=== PATIENT | female | born 1930 | race Caucasian/White ===

== ENCOUNTER 2019-10-05 01:50 | Inpatient (IN) | payer MEDICARE ==
[2019-10-05] VITALS (8 sets, daily range): BP systolic 108–124
[~2019-10-05] VITALS: Ht 160 cm; Wt 113.9 kg
[2019-10-05] MEDS ORDERED: NS 500 ML IV ONE (02:00)
[2019-10-05] MEDS ORDERED: GLIP5TAB26 PO (02:27)
[2019-10-05] MEDS ORDERED: ALLO100T PO (02:27)
[2019-10-05] MEDS ORDERED: LISI5TAB PO (02:28)
[2019-10-05 02:41] LABS: HEMATOCRIT 42.4 % (36-48); HEMOGLOBIN 14.3 g/dL (12.0-16.0); MEAN CORPUSCULAR HEMOGLOBIN 33 pg (27-31); MEAN CORPUSCULAR HGB CONC 34 % (32-36); MEAN CORPUSCULAR VOLUME 96 fL (79.0-98.0); PLATELET COUNT (AUTO) 234 K/uL (130-430); RED BLOOD CELL COUNT(AUTO) 4.41 MIL/uL (4.2-6.2); RED CELL DISTRIBUTION WIDTH 13.7 % (9.0-15.0); WHITE BLOOD COUNT (AUTO) 17.4 K/uL (4.8-10.8)
[2019-10-05 02:56] LABS: ANION GAP 8 (5-15); CALCIUM 8.3 mg/dL (8.4-11.0); CHLORIDE 99 mmol/L (98-107); CREATININE 1.31 mg/dL (0.55-1.30); GLUCOSE 265 mg/dL (70-99); POTASSIUM 4.3 mmol/L (3.5-5.1); SODIUM SERUM 132 mmol/L (136-145); UREA NITROGEN, BLOOD 19 mg/dL (8-21)
[2019-10-05 03:00] LABS: PROTHROMBIN TIME 9.9 SECS (9.5-12.5)
[2019-10-05 03:01] LABS: ATYPICAL LYMPHOCYTES % 1 % (0-0); BAND % (MANUAL) 0 % (0-6); BASOPHILS % (MANUAL) 0 % (0-2); EOSINOPHILS % (MANUAL) 0 % (0-7); LYMPHOCYTES % (MANUAL) 10 % (20-46); MONOCYTES % (MANUAL) 8 % (0-11)
[2019-10-05 03:02] LABS: ALANINE AMINOTRANSFERASE 46 U/L (12-78); ALBUMIN 3.5 g/dL (3.4-4.8); ASPARTATE AMINOTRANSFERASE 154 U/L (10-37); TOTAL BILIRUBIN 0.7 mg/dL (0.0-1.0)
[2019-10-05] MEDS ORDERED: ASPIRIN 81 MG TAB.CHEW PO ONE (03:15)
[2019-10-05] MEDS ORDERED: HEPARIN SODIUM,PORCINE 5000 UNITS/ML VIAL IVP ONE (04:00)
[2019-10-05] MEDS ORDERED: *HEPARIN PER PHARMACY XX ONE (04:00)
[2019-10-05] MEDS ORDERED: LEVOFLOXACIN 500 MG/D5W 100 ML IV ONE (04:15)
[2019-10-05] MEDS ORDERED: HEPARIN 25,000 UNITS/D5W 250ML 250 ML IV ONE ×2 (04:30→04:45)
[2019-10-05 05:28] LABS: BILIRUBIN,URINE NEGATIVE (NEGATIVE); BLOOD, URINE NEGATIVE (NEGATIVE); CLARITY/URINE CLEAR (CLEAR); COLOR,URINE YELLOW (YELLOW); GLUCOSE,URINE TRACE (NEGATIVE); KETONES,URINE NEGATIVE (NEGATIVE); LEUKOCYTE ESTERASE ,URINE NEGATIVE (NEGATIVE); NITRITE, URINE NEGATIVE (NEGATIVE); PH,URINE 5.5 (5.0-8.0); PROTEIN URINE NEGATIVE (NEGATIVE); UROBILINOGEN,URINE 0.2 (0.2-1.0)
[2019-10-05] MEDS ORDERED: NACL 0.9% 2,500 ML IV ONE (05:30)
[2019-10-05] MEDS ORDERED: *HEPARIN PER PHARMACY XX SCH (06:15)
[2019-10-05] MEDS ORDERED: HEPARIN SODIUM,PORCINE 2000 UNITS/0.4 ML BOLUS IVP PRN (06:30)
[2019-10-05] MEDS: ASPIRIN 81 MG TAB.CHEW PO SCH (08:57)
[2019-10-05] MEDS ORDERED: LISINOPRIL 5 MG TABLET PO SCH (09:00)
[2019-10-05] MEDS ORDERED: DEXTROSE 50% JECT 50 ML DISP.SYRIN IVP PRN (09:15)
[2019-10-05] MEDS ORDERED: PANTOPRAZOLE SODIUM 40 MG/VIAL (PROTONIX) IVP ONE (09:45)
[2019-10-05 09:47] LABS: ANION GAP 8 (5-15); CALCIUM 7.7 mg/dL (8.4-11.0); CHLORIDE 99 mmol/L (98-107); CREATININE 1.17 mg/dL (0.55-1.30); GLUCOSE 219 mg/dL (70-99); POTASSIUM 4.3 mmol/L (3.5-5.1); SODIUM SERUM 134 mmol/L (136-145); UREA NITROGEN, BLOOD 20 mg/dL (8-21)
[2019-10-05 10:28] LABS: BASOPHILS # (AUTO) 0.1 K/uL (0.0-0.2); BASOPHILS % (AUTO) 0.7 % (0.0-2.0); EOSINOPHILS % (AUTO) 0.1 % (0.0-4.0); HEMATOCRIT 36.1 % (36-48); HEMOGLOBIN 12.1 g/dL (12.0-16.0); LYMPHOCYTES # (AUTO) 1.4 K/uL (1.0-5.5); LYMPHOCYTES % (AUTO) 10.1 % (20.5-51.5); MEAN CORPUSCULAR HEMOGLOBIN 33 pg (27-31); MEAN CORPUSCULAR HGB CONC 34 % (32-36); MEAN CORPUSCULAR VOLUME 97 fL (79.0-98.0); MONOCYTES # (AUTO) 1.6 K/uL (0.0-1.0); NEUTROPHILS % (AUTO) 78.1 % (40.0-70.0); PLATELET COUNT (AUTO) 197 K/uL (130-430); RED BLOOD CELL COUNT(AUTO) 3.74 MIL/uL (4.2-6.2); RED CELL DISTRIBUTION WIDTH 13.7 % (9.0-15.0); WHITE BLOOD COUNT (AUTO) 14.1 K/uL (4.8-10.8)
[2019-10-05] MEDS: glipiZIDE XL 5 MG TAB ( GLUCOTROL XL) PO SCH ×2 (11:11→21:47)
[2019-10-05] MEDS: ALLOPURINOL 100 MG TABLET (ZYLOPRIM) PO SCH (11:11)
[2019-10-05] MEDS ORDERED: PANTOPRAZOLE SODIUM 40 MG/VIAL (PROTONIX) ONE (11:29)
[2019-10-05] MEDS: INSULIN REGULAR, HUMAN 100 UNITS/ML, 10 ML VIAL (humuLIN R) SUBCUT PRN ×3 (11:43→21:50)
[2019-10-05] MEDS: HEPARIN SODIUM,PORCINE 3000 UNITS/0.6 ML BOLUS IVP PRN ×2 (11:57→21:29)
[2019-10-05] MEDS: ONDANSETRON HCL 4 MG/2 ML VIAL IVP PRN (17:45)
[2019-10-05] MEDS: HEPARIN 25,000 UNITS in 250 ML PREMIX IV PRN (21:34)
[2019-10-06] VITALS (12 sets, daily range): BP systolic 99–129
[2019-10-06 04:07] LABS: BASOPHILS # (AUTO) 0.1 K/uL (0.0-0.2); BASOPHILS % (AUTO) 0.4 % (0.0-2.0); EOSINOPHILS # (AUTO) 0.2 K/uL (0.0-0.4); EOSINOPHILS % (AUTO) 1.4 % (0.0-4.0); HEMATOCRIT 34.3 % (36-48); HEMOGLOBIN 11.4 g/dL (12.0-16.0); LYMPHOCYTES # (AUTO) 2.5 K/uL (1.0-5.5); LYMPHOCYTES % (AUTO) 19.7 % (20.5-51.5); MEAN CORPUSCULAR HEMOGLOBIN 32 pg (27-31); MEAN CORPUSCULAR HGB CONC 33 % (32-36); MEAN CORPUSCULAR VOLUME 97 fL (79.0-98.0); MONOCYTES # (AUTO) 1.4 K/uL (0.0-1.0); MONOCYTES % (AUTO) 10.9 % (1.7-9.3); NEUTROPHILS # (AUTO) 8.6 K/uL (1.8-7.7); NEUTROPHILS % (AUTO) 67.6 % (40.0-70.0); PLATELET COUNT (AUTO) 192 K/uL (130-430); RED BLOOD CELL COUNT(AUTO) 3.53 MIL/uL (4.2-6.2); RED CELL DISTRIBUTION WIDTH 13.6 % (9.0-15.0); WHITE BLOOD COUNT (AUTO) 12.7 K/uL (4.8-10.8)
[2019-10-06] MEDS: HEPARIN SODIUM,PORCINE 3000 UNITS/0.6 ML BOLUS IVP PRN ×2 (04:35→13:50)
[2019-10-06 04:36] LABS: ALANINE AMINOTRANSFERASE 33 U/L (12-78); ALBUMIN 2.8 g/dL (3.4-4.8); ANION GAP 9 (5-15); CALCIUM 7.3 mg/dL (8.4-11.0); CHLORIDE 102 mmol/L (98-107); CREATININE 1.21 mg/dL (0.55-1.30); GLUCOSE 155 mg/dL (70-99); POTASSIUM 4.2 mmol/L (3.5-5.1); SODIUM SERUM 136 mmol/L (136-145); TOTAL BILIRUBIN 0.5 mg/dL (0.0-1.0); UREA NITROGEN, BLOOD 22 mg/dL (8-21)
[2019-10-06] MEDS: HEPARIN 25,000 UNITS in 250 ML PREMIX IV PRN ×2 (04:38→13:55)
[2019-10-06 04:48] LABS: ASPARTATE AMINOTRANSFERASE 53 U/L (10-37)
[2019-10-06 05:02] LABS: CHOLESTEROL 187 mg/dL (<200); HDL CHOLESTEROL 50 mg/dL (>55); LDL CHOLESTEROL 117 mg/dL (<100); TRIGLYCERIDES 121 mg/dL (30-150)
[2019-10-06] MEDS ORDERED: LEVOFLOXACIN 250 MG/D5W 50 ML IV SCH (06:00)
[2019-10-06] MEDS: INSULIN REGULAR, HUMAN 100 UNITS/ML, 10 ML VIAL (humuLIN R) SUBCUT PRN ×4 (06:07→22:15)
[2019-10-06] MEDS: ONDANSETRON HCL 4 MG/2 ML VIAL IVP PRN (08:04)
[2019-10-06] MEDS: glipiZIDE XL 5 MG TAB ( GLUCOTROL XL) PO SCH ×2 (09:21→20:55)
[2019-10-06] MEDS: ASPIRIN 81 MG TAB.CHEW PO SCH (09:21)
[2019-10-06] MEDS: ALLOPURINOL 100 MG TABLET (ZYLOPRIM) PO SCH (09:21)
[2019-10-06] MEDS: PANTOPRAZOLE SODIUM 40 MG/VIAL (PROTONIX) IVP SCH (09:21)
[2019-10-06] MEDS ORDERED: DILTIAZEM HCL 25 MG/5 ML VIAL IVP PRN (13:30)
[2019-10-06] MEDS ORDERED: METOPROLOL TARTRATE 25 MG TABLET PO ONE (13:30)
[2019-10-06] MEDS: DILTIAZEM HCL 60 MG TABLET PO SCH ×2 (14:04→22:23)
[2019-10-06] MEDS ORDERED: DILTIAZEM HCL 125 MG in D5W 100 ML IV SCH (14:45)
[2019-10-06 16:23] LABS: BASOPHILS # (AUTO) 0.1 K/uL (0.0-0.2); BASOPHILS % (AUTO) 0.7 % (0.0-2.0); EOSINOPHILS # (AUTO) 0.1 K/uL (0.0-0.4); HEMATOCRIT 34.8 % (36-48); HEMOGLOBIN 11.6 g/dL (12.0-16.0); LYMPHOCYTES # (AUTO) 2.1 K/uL (1.0-5.5); LYMPHOCYTES % (AUTO) 15.3 % (20.5-51.5); MEAN CORPUSCULAR HEMOGLOBIN 32 pg (27-31); MEAN CORPUSCULAR HGB CONC 33 % (32-36); MEAN CORPUSCULAR VOLUME 97 fL (79.0-98.0); MONOCYTES # (AUTO) 1.5 K/uL (0.0-1.0); MONOCYTES % (AUTO) 11.1 % (1.7-9.3); NEUTROPHILS # (AUTO) 9.7 K/uL (1.8-7.7); NEUTROPHILS % (AUTO) 71.9 % (40.0-70.0); PLATELET COUNT (AUTO) 200 K/uL (130-430); RED BLOOD CELL COUNT(AUTO) 3.57 MIL/uL (4.2-6.2); WHITE BLOOD COUNT (AUTO) 13.5 K/uL (4.8-10.8)
[2019-10-06 16:52] LABS: ANION GAP 9 (5-15); CALCIUM 8.6 mg/dL (8.4-11.0); CHLORIDE 102 mmol/L (98-107); CREATININE 1.17 mg/dL (0.55-1.30); GLUCOSE 188 mg/dL (70-99); POTASSIUM 4.8 mmol/L (3.5-5.1); SODIUM SERUM 134 mmol/L (136-145); UREA NITROGEN, BLOOD 24 mg/dL (8-21)
[2019-10-06] MEDS ORDERED: FUROSEMIDE 20 MG/2 ML VIAL IVP ONE (17:00)
[2019-10-06] MEDS ORDERED: LEVALBUTEROL HCL 0.63 MG/3 ML VIAL.NEB INH ONE (17:15)
[2019-10-06] MEDS ORDERED: *LOVENOX 1MG/KG Q12H/PHARMACY XX ONE (18:30)
[2019-10-06] MEDS ORDERED: ENOXAPARIN SODIUM 120 MG/0.8 ML SYRINGE SUBCUT ONE (19:00)
[2019-10-06] MEDS: LEVOFLOXACIN 500 MG/D5W 100 ML IV SCH (20:52)
[2019-10-06] MEDS ORDERED: METOPROLOL TARTRATE 25 MG TABLET PO SCH (21:00)
[2019-10-06] MEDS: LEVALBUTEROL HCL 0.63 MG/3 ML VIAL.NEB INH PRN (21:26)
[2019-10-07] VITALS (24 sets, daily range): BP systolic 100–132
[2019-10-07] MEDS: DILTIAZEM HCL 60 MG TABLET PO SCH ×3 (06:01→21:45)
[2019-10-07] MEDS: INSULIN REGULAR, HUMAN 100 UNITS/ML, 10 ML VIAL (humuLIN R) SUBCUT PRN ×4 (06:02→23:20)
[2019-10-07] MEDS: LEVALBUTEROL HCL 0.63 MG/3 ML VIAL.NEB INH PRN (08:26)
[2019-10-07] MEDS: glipiZIDE XL 5 MG TAB ( GLUCOTROL XL) PO SCH (09:15)
[2019-10-07] MEDS: PANTOPRAZOLE SODIUM 40 MG/VIAL (PROTONIX) IVP SCH (09:15)
[2019-10-07] MEDS: ATORVASTATIN 20 MG TABLET PO SCH (09:16)
[2019-10-07] MEDS: ASPIRIN 81 MG TAB.CHEW PO SCH (09:16)
[2019-10-07] MEDS: ALLOPURINOL 100 MG TABLET (ZYLOPRIM) PO SCH (09:16)
[2019-10-07] MEDS: ENOXAPARIN SODIUM 100 MG/ML SYRINGE SUBCUT SCH ×2 (09:21→21:43)
[2019-10-07 09:54] LABS: EOSINOPHILS # (AUTO) 0.1 K/uL (0.0-0.4); HEMOGLOBIN 11.9 g/dL (12.0-16.0); WHITE BLOOD COUNT (AUTO) 15.4 K/uL (4.8-10.8)
[2019-10-07 10:02] LABS: BASOPHILS % (AUTO) 0.3 % (0.0-2.0); EOSINOPHILS % (AUTO) 0.6 % (0.0-4.0); HEMATOCRIT 35.8 % (36-48); LYMPHOCYTES # (AUTO) 2.1 K/uL (1.0-5.5); LYMPHOCYTES % (AUTO) 13.9 % (20.5-51.5); MEAN CORPUSCULAR HEMOGLOBIN 33 pg (27-31); MEAN CORPUSCULAR HGB CONC 33 % (32-36); MEAN CORPUSCULAR VOLUME 98 fL (79.0-98.0); MONOCYTES # (AUTO) 1.7 K/uL (0.0-1.0); MONOCYTES % (AUTO) 11.3 % (1.7-9.3); NEUTROPHILS # (AUTO) 11.4 K/uL (1.8-7.7); NEUTROPHILS % (AUTO) 73.9 % (40.0-70.0); PLATELET COUNT (AUTO) 214 K/uL (130-430); RED BLOOD CELL COUNT(AUTO) 3.65 MIL/uL (4.2-6.2); RED CELL DISTRIBUTION WIDTH 13.8 % (9.0-15.0)
[2019-10-07 10:25] LABS: ANION GAP 8 (5-15); CALCIUM 8.7 mg/dL (8.4-11.0); CHLORIDE 99 mmol/L (98-107); GLUCOSE 212 mg/dL (70-99); POTASSIUM 4.8 mmol/L (3.5-5.1); SODIUM SERUM 133 mmol/L (136-145)
[2019-10-07 10:26] LABS: CREATININE 1.68 mg/dL (0.55-1.30); THYROID STIMULATING HORMONE 2.04 uIu/mL (0.36-3.74); UREA NITROGEN, BLOOD 35 mg/dL (8-21)
[2019-10-07] MEDS: SODIUM BICARBONATE 8.4% VIAL 50 MEQ in 0.45% NACL 1,000 ML IV SCH (12:37)
[2019-10-07] MEDS: LEVOFLOXACIN 500 MG/D5W 100 ML IV SCH (17:12)
[2019-10-07] MEDS ORDERED: FUROSEMIDE 20 MG/2 ML VIAL IVP ONE (18:30)
[2019-10-08] VITALS (14 sets, daily range): BP systolic 85–130
[2019-10-08] MEDS: SODIUM BICARBONATE 8.4% VIAL 50 MEQ in 0.45% NACL 1,000 ML IV SCH (04:30)
[2019-10-08] MEDS: DILTIAZEM HCL 60 MG TABLET PO SCH ×3 (06:19→18:03)
[2019-10-08 06:39] LABS: ANION GAP 6 (5-15); CHLORIDE 97 mmol/L (98-107); CREATININE 1.33 mg/dL (0.55-1.30); GLUCOSE 160 mg/dL (70-99); SODIUM SERUM 130 mmol/L (136-145); UREA NITROGEN, BLOOD 31 mg/dL (8-21)
[2019-10-08] MEDS: ENOXAPARIN SODIUM 100 MG/ML SYRINGE SUBCUT SCH ×2 (09:40→21:16)
[2019-10-08] MEDS: PANTOPRAZOLE SODIUM 40 MG/VIAL (PROTONIX) IVP SCH (09:41)
[2019-10-08] MEDS: ASPIRIN 81 MG TAB.CHEW PO SCH (09:41)
[2019-10-08] MEDS: ALLOPURINOL 100 MG TABLET (ZYLOPRIM) PO SCH (09:41)
[2019-10-08] MEDS: ATORVASTATIN 20 MG TABLET PO SCH (09:41)
[2019-10-08] MEDS ORDERED: FUROSEMIDE 20 MG/2 ML VIAL IVP ONE (10:15)
[2019-10-08] MEDS: INSULIN REGULAR, HUMAN 100 UNITS/ML, 10 ML VIAL (humuLIN R) SUBCUT PRN ×3 (12:11→21:15)
[2019-10-08] MEDS ORDERED: DIGOXIN 0.5 MG/2 ML AMP IVP ONE (13:00)
[2019-10-08] MEDS: LEVOFLOXACIN 500 MG/D5W 100 ML IV SCH (17:13)
[2019-10-08] MEDS: LEVALBUTEROL HCL 0.63 MG/3 ML VIAL.NEB INH PRN (21:27)
[2019-10-09] VITALS (15 sets, daily range): BP systolic 100–155
[2019-10-09] MEDS: DILTIAZEM HCL 60 MG TABLET PO SCH ×2 (00:45→13:23)
[2019-10-09] MEDS: INSULIN REGULAR, HUMAN 100 UNITS/ML, 10 ML VIAL (humuLIN R) SUBCUT PRN ×2 (06:16→11:38)
[2019-10-09 07:02] LABS: BASOPHILS # (AUTO) 0.1 K/uL (0.0-0.2); BASOPHILS % (AUTO) 0.6 % (0.0-2.0); EOSINOPHILS # (AUTO) 0.5 K/uL (0.0-0.4); EOSINOPHILS % (AUTO) 4.6 % (0.0-4.0); HEMOGLOBIN 10.6 g/dL (12.0-16.0); LYMPHOCYTES # (AUTO) 1.9 K/uL (1.0-5.5); MEAN CORPUSCULAR HEMOGLOBIN 33 pg (27-31); MEAN CORPUSCULAR HGB CONC 34 % (32-36); MEAN CORPUSCULAR VOLUME 96 fL (79.0-98.0); MONOCYTES # (AUTO) 1.4 K/uL (0.0-1.0); MONOCYTES % (AUTO) 12.4 % (1.7-9.3); NEUTROPHILS # (AUTO) 7.2 K/uL (1.8-7.7); NEUTROPHILS % (AUTO) 65.4 % (40.0-70.0); PLATELET COUNT (AUTO) 223 K/uL (130-430); RED BLOOD CELL COUNT(AUTO) 3.22 MIL/uL (4.2-6.2); RED CELL DISTRIBUTION WIDTH 13.4 % (9.0-15.0)
[2019-10-09 07:27] LABS: ANION GAP 5 (5-15); CALCIUM 8.3 mg/dL (8.4-11.0); CHLORIDE 96 mmol/L (98-107); CREATININE 1.36 mg/dL (0.55-1.30); GLUCOSE 157 mg/dL (70-99); PHOSPHORUS 2.9 mg/dL (2.7-4.5); SODIUM SERUM 129 mmol/L (136-145); UREA NITROGEN, BLOOD 35 mg/dL (8-21)
[2019-10-09] MEDS: ASPIRIN 81 MG TAB.CHEW PO SCH (08:26)
[2019-10-09] MEDS: ATORVASTATIN 20 MG TABLET PO SCH (08:26)
[2019-10-09] MEDS: PANTOPRAZOLE SODIUM 40 MG/VIAL (PROTONIX) IVP SCH (08:26)
[2019-10-09] MEDS: ALLOPURINOL 100 MG TABLET (ZYLOPRIM) PO SCH (08:26)
[2019-10-09] MEDS: ENOXAPARIN SODIUM 100 MG/ML SYRINGE SUBCUT SCH (08:46)
[2019-10-09] MEDS ORDERED: LOVI100 SUBCUT (12:11)
[2019-10-09] MEDS ORDERED: LEVO500P13 IV (12:11)
[2019-10-09] MEDS ORDERED: PROI40 IVP (12:11)
[2019-10-09] MEDS ORDERED: LIP20 PO (12:11)
[2019-10-09] MEDS ORDERED: DILT60TA3 PO (12:11)
[2019-10-09] MEDS ORDERED: ASA81 PO (12:11)
== END 2019-10-09 15:35 | disposition short-term general hospital (02) | DRG 871 ==
LOC: SED 01:50 → STU 04:51 → SIC 10-06 15:00
PROVIDERS: ADMIT Internal Medicine; ATTEND Internal Medicine
PROC: 5A09357 Assistance with Respiratory Ventilation, Less than 24 Consecutive Hours, Continuous Positive Airway Pressure (ICD-10-PCS; principal; 2019-10-05)
PROC: 5A09457 Assistance with Respiratory Ventilation, 24-96 Consecutive Hours, Continuous Positive Airway Pressure (ICD-10-PCS; 2019-10-07)
DX: A41.9 Sepsis, unspecified organism (principal); J18.9 Pneumonia, unspecified organism; I21.4 Non-ST elevation (NSTEMI) myocardial infarction; N17.0 Acute kidney failure with tubular necrosis; I13.0 Hypertensive heart and chronic kidney disease with heart failure and stage 1 through stage 4 chronic kidney disease, or unspecified chronic kidney disease; Z68.41 Body mass index [BMI] 40.0-44.9, adult; E11.22 Type 2 diabetes mellitus with diabetic chronic kidney disease; G47.33 Obstructive sleep apnea (adult) (pediatric); I50.9 Heart failure, unspecified; N18.9 Chronic kidney disease, unspecified; I48.91 Unspecified atrial fibrillation; E79.0 Hyperuricemia without signs of inflammatory arthritis and tophaceous disease; I25.10 Atherosclerotic heart disease of native coronary artery without angina pectoris; I27.20 Pulmonary hypertension, unspecified; I34.0 Nonrheumatic mitral (valve) insufficiency; E66.01 Morbid (severe) obesity due to excess calories; Z82.49 Family history of ischemic heart disease and other diseases of the circulatory system; I25.2 Old myocardial infarction; Z83.3 Family history of diabetes mellitus; Z79.899 Other long term (current) drug therapy; Z79.82 Long term (current) use of aspirin
CPT/HCPCS: 36415; 36600; 71045; 80048; 80053; 80061; 81003; 82009-TC; 82803-TC; 82962; 83036; 83605; 83735-TC; 83880; 84100-TC; 84443-TC; 84484; 85007; 85025; 85027; 85610-TC; 85730-TC; 87040-TC; 87081; 87086; 93005; 93306; 94640; 94660; 94760; 96374; 99291; C9113; G0378; J1160; J1644; J1650; J1815; J1940; J1956; J2405; J3490; J7030; J7040; J7050; J7060; J7614